=== PATIENT | female | born 1945 | race African-American/Black ===

== ENCOUNTER 2017-10-26 10:19 | Outpatient (CLI) ==
[2016-05-25 21:51] VITALS: BMI 19.3
--- NOTE | 2017-10-26 11:38 | MAMMO ---
EXAM: Digital screening mammogram with 3-D tomosynthesis and CAD HISTORY: Screening mammogram COMPARISON: Mammogram 10/12/2013 FINDINGS: Bilateral CC and MLO views of the breasts were performed digitally and demonstrate heterog eneous breast density. Biopsy clip is noted in the left breast. There is no abnormal nodule or calci fication. There is no significant interval change. IMPRESSION: No suspicious nodule or calcification RECOMMENDATION: Annual screening mammogram BIRADS category II: Benign findings
== END 2017-10-26 10:20 | disposition home or self-care (01) ==
LOC: RAD 10:19
PROVIDERS: ATTEND Emergency Medicine
DX: Z12.31 Encounter for screening mammogram for malignant neoplasm of breast (principal); R91.1 Solitary pulmonary nodule; E78.5 Hyperlipidemia, unspecified; I10 Essential (primary) hypertension
CPT/HCPCS: 36415; 77067; 80053; 80061; 85025

== ENCOUNTER 2018-03-02 14:22 | Emergency (ER) ==
[2018-03-02 14:34] VITALS: BP 179/98; TEMP 98; BMI 21.7
--- NOTE | 2018-03-02 16:05 | ED.PDOC ---
General ED Provider: Dr. LISSY BALL Chief Complaint: Back Pain Stated Complaint: Severe Lt Sided back pain from posterior chest to the lower back. Onset after standing at sink doing dishes. Hx of CHF and heart disease and concern pain could be related. Time Seen by Physician: 13:50 Mode of Arrival: Walk-In Information Source: Patient Exam Limitations: No limitations [facility] Nursing and Triage Documentation Reviewed and Agree: Yes Reviewed sepsis parameters & appropriate labs ordered?: Yes System Inflammatory Response Syndrome: Not Applicable Sepsis Protocol: For patient's 13 years and over: Temp is 96.8 and below OR 101 and greater Pulse >90 BPM Resp >20/minute Acutely Altered Mental Status Are patient's symptoms suggestive of a new infection, such as: -Pneumonia -Skin, Soft Tissue -Endocarditis -UTI -Bone, Joint Infection -Implantable Device -Acute Abdominal Infection -Wound Infection -Meningitis -Blood Stream Catheter Infection -Unknown System Inflammatory Response Syndrome: Not Applicable Musculoskeletal Complaint Exam - Back Pain Complaint/Exam Mechanism of Injury: Reports: No known trauma Symptoms Are: Still present Timing: Constant Episodes Lasting: Hours Initial Severity: Severe Current Severity: Moderate Location: Reports: Diffuse Character: Reports: Aching, Spasmodic Aggravating: Reports: Movements Alleviating: Reports: None Associated Signs and Symptoms: Denies: Swelling, Redness, Bruising, Fever, Weakness, Numbness, Tingling, Abdominal pain, Flank pain, Bladder incontinence, Bowel incontinence, Weight loss, Pain with weight bearing Related History: Denies: Similar episode TAD Risk Factors: Reports: None AAA Risk Factors: Reports: None Cauda Equina Risk Factors: Reports: None Epidural Abcess Risk Factors: Reports: None Related Surgical History: Reports: None Focal Tenderness: Yes Paraspinal Muscle Tenderness: Yes Paraspinal Muscle Spasm: Yes Scoliosis: No Lordosis: No Kyphosis: No SLR Test: Right Negative, Left Negative Hip Motion Testing Pain: Right Negative, Left Negative Focal Weakness: Present: None Focal Sensory Loss: Present: None Gait: Present: Normal Differential Diagnoses: Arthritis, Strain Review of Systems - Review Of Systems Constitutional: Reports: No symptoms Eyes: Reports: No symptoms Ears, Nose, Mouth, Throat: Reports: No symptoms Respiratory: Reports: No symptoms Cardiac: Reports: No symptoms GI: Reports: No symptoms : Reports: No symptoms Musculoskeletal: Reports: Back pain Skin: Reports: No symptoms Neurological: Reports: No symptoms Endocrine: Reports: No symptoms Hematologic/Lymphatic: Reports: No symptoms All Other Systems: Reviewed and Negative Past Medical History - Past Medical History Endocrine: Reports: Dyslipidemia Cardiovascular: Reports: Hypertension, CHF Respiratory: Reports: COPD Hematological: Reports: None Gastrointestinal: Reports: GERD Genitourinary: Reports: None Neuro/Psych: Reports: None Musculoskeletal: Reports: None Cancer: Reports: None Last Menstrual Period: HYSTERECTOMY - Surgical History General Surgical History: Reports: Unknown - Family History Family History: Reports: Unknown - Social History Smoking Status: Current every day smoker, Light tobacco smoker Hx Substance Use: No Alcohol Screening: None - Immunizations Tetanus Shot up to Date: Yes Physical Exam - Physical Exam Appearance: Well-appearing, No pain distress, Well-nourished Ill-appearing: None Pain Distress: Mild Eyes: CANDELARIA, EOMI, Conjunctiva clear ENT: Ears normal, Nose normal, Oropharynx normal Respiratory: Airway patent, Breath sounds clear, Breath sounds equal, Respirations nonlabored Cardiovascular: RRR, Pulses normal, No rub, No murmur GI/: Soft Musculoskeletal: Normal strength (Tenderness LT upper to mid thoracic paraspinous musculatrue /decrease flexion), ROM intact, No edema, No calf tenderness Skin: Warm, Dry, Normal color Neurological: Sensation intact, Motor intact, Reflexes intact, Cranial nerves intact, Alert, Oriented Psychiatric: Affect appropriate, Mood appropriate Re-Evaluation - Re-Evaluation Time of Re-Evaluation: 17:30 Status: Improved Vital Signs Stable: Yes Appearance: NAD Lungs: Clear Skin: Warm and Dry Neuro: Alert and Oriented X3 CV: RRR Additional Comments: Discussed with Dr Carrera/To follow up in next week Critical Care Note - Critical Care Note Total Time (mins): 0 Course - Course Hematology/Chemistry: 03/02/18 16:20 03/02/18 16:20 Orders, Labs, Meds: Lab Review 03/02/18 03/02/18 16:20 16:20 WBC 10.83 H RBC 5.62 H Hgb 15.2 Hct 45.1 MCV 80.2 L MCH 27.0 MCHC 33.7 RDW Coeff of Jeremy 15.7 H Plt Count 228 Immature Gran % (Auto) 0.3 Neut % (Auto) 51.0 Lymph % (Auto) 37.6 [place] % (Auto) 9.5 Eos % (Auto) 1.0 Baso % (Auto) 0.6 Immature Gran # (Auto) 0.0 Neut # (Auto) 5.5 Lymph # (Auto) 4.1 H [place] # (Auto) 1.0 Eos # (Auto) 0.1 Baso # (Auto) 0.1 Sodium 141 Potassium 4.9 Chloride 103 Carbon Dioxide 27 Anion Gap 15.9 BUN 11 Creatinine 0.72 Estimated GFR (MDRD) 97.00 BUN/Creatinine Ratio 15.27 Glucose 92 Calcium 11.2 H Total Bilirubin 0.5 AST 14 L ALT 11 L Alkaline Phosphatase 117 Troponin I 0.0380 Total Protein 8.1 Albumin 4.2 Globulin 3.9 Albumin/Globulin Ratio 1.08 Orders Category Date Time Status EKG-(ED ONLY) Stat CARDIO 03/02/18 16:04 Completed CBC W/ AUTO DIFF Stat LAB 03/02/18 16:20 Completed CMP [COMPREHENSIVE METABOLIC PANEL] Stat LAB 03/02/18 16:20 Completed TROPONIN I Stat LAB 03/02/18 16:20 Completed CHEST, 2 VIEWS PA & LAT Stat RADS 03/02/18 16:03 Completed Vital Signs: Temp Pulse Resp BP Pulse Ox 03/02/18 14:25 98.0 F 85 16 179/98 H 93 L Departure - Departure Time of Disposition: 18:00 Disposition: HOME SELF-CARE Discharge Problem: Strain of thoracic paraspinal muscles excluding T1 and T2 levels Instructions: Muscle Strain (ED), Lower Back Exercises (ED), Core Strengthening Exercises (ED) Condition: Good Pt referred to PMD for follow-up: Yes IPMP verified?: No Prescriptions: Tizanidine HCl [Zanaflex] 2 mg PO Q8HR PRN #14 capsule PRN Reason: muscular spasm and back pain Allergies/Adverse Reactions: Allergies No Known Allergies Allergy (Verified 03/02/18 14:29) Home Medications: Ambulatory Orders [place] B 8 spray INH spray 2-3 x daily 07/29/16 Omeprazole Magnesium [Prilosec Otc] 20 mg PO DAILY 03/02/18 Tizanidine HCl [Zanaflex] 2 mg PO Q8HR PRN #14 capsule 03/02/18 Disposition Discussed With: Patient
--- NOTE | 2018-03-02 16:29 | DI ---
Exam: Two views of the chest. Comparison: CT chest performed 06/23/2016. Reason for exam: Left-sided posterior chest pain. FINDINGS: Parenchymal changes are seen consistent with chronic lung disease. No pneumothorax, pleur al effusion, or focal consolidation. The cardiac silhouette remains prominent in size. No displaced fractures are seen. Evaluation of the thoracic spine is limited by summation artifact. Impression: No acute cardiopulmonary process in the setting of suspected chronic lung disease.
== END 2018-03-02 18:15 | disposition home or self-care (01) ==
LOC: ED 14:22
DX: S29.012A Strain of muscle and tendon of back wall of thorax, initial encounter (principal); X50.1XXA Overexertion from prolonged static or awkward postures, initial encounter; I25.10 Atherosclerotic heart disease of native coronary artery without angina pectoris; I50.9 Heart failure, unspecified; E78.5 Hyperlipidemia, unspecified; I10 Essential (primary) hypertension; J44.9 Chronic obstructive pulmonary disease, unspecified; K21.9 Gastro-esophageal reflux disease without esophagitis; F17.210 Nicotine dependence, cigarettes, uncomplicated
CPT/HCPCS: 36415; 80053; 84484; 85025; 93005; 93010; 99283

== ENCOUNTER 2018-03-12 08:37 | Emergency (ER) ==
[2018-03-12 08:45] VITALS: BP 174/101; TEMP 97.9; BMI 21.9
[2018-03-12] MEDS: ZOFRAN 4 MG/2 ML IM STA (09:02)
[2018-03-12] MEDS: DILAUDID 2 MG/ML SYRINGE IM STA (09:02)
--- NOTE | 2018-03-12 09:44 | CT ---
EXAM: CT of thoracic spine. HISTORY: Back pain COMPARISON: None. TECHNIQUE: Axial scans acquired at 3 mm slice thicknesses. MPR coronal and sagittal sequence comple tammy FINDINGS: Sagittal sequence shows demineralization of the thoracic vertebra.. There is a lytic lesion or area decreased bone density involving the body of T9. Is seen left of midline with expansion or destructi on of the lateral cortex and extension into the anterior left pedicle. There is no fracture of the m argins of the spinal canal. Coronal sequence shows approximately 23 degrees dextroscoliosis. There are degenerate changes of the facet joints and disc space narrowing lower cervical spine There is some narrowing of the C7-T1 disc space .. There are degenerative change facet joints with s ome narrowing the right left neural foramen. T1-T2 level . There is degenerate disc disease with indentation of the dura and minimal to moderate right and left foraminal stenosis T2-T3 to the T11-T12 level show no acute disc protrusion, spinal stenosis or severe foraminal stenosi s. Impression 1. There is a lytic lesion or cystic change involving the body of T9 left of midline with expansion or destruction of the lateral cortex. There is minimal extension into the anterior left pedicle of T 9. Findings concerning for metastatic disease or myeloma less likely a giant cell tumor. There is n o fracture of the margins of the spinal canal or obvious extradural mass. Follow-up bone scan or MRI would be helpful to further assess. 2. There is some narrowing the C 7T1 disc space degenerative change facet joints and some narrowing the right left neural foramen. There is also degenerative change of the lower cervical spine. 3. Approximately 23 degrees dextroscoliosis thoracic spine. Results of CT findings were discussed by phone with attending ER physician, Dr. Segura Faxed report sent
--- NOTE | 2018-03-12 09:46 | ED.PDOC ---
General ED Provider: Dr. LISSY GALLEGOS-ER Chief Complaint: Back Pain Stated Complaint: maurice been having back pain for 3 weeks Time Seen by Physician: 08:45 Mode of Arrival: Walk-In Information Source: Patient Exam Limitations: No limitations [facility] Nursing and Triage Documentation Reviewed and Agree: Yes Reviewed sepsis parameters & appropriate labs ordered?: Yes System Inflammatory Response Syndrome: Not Applicable Sepsis Protocol: For patient's 13 years and over: Temp is 96.8 and below OR 101 and greater Pulse >90 BPM Resp >20/minute Acutely Altered Mental Status Are patient's symptoms suggestive of a new infection, such as: -Pneumonia -Skin, Soft Tissue -Endocarditis -UTI -Bone, Joint Infection -Implantable Device -Acute Abdominal Infection -Wound Infection -Meningitis -Blood Stream Catheter Infection -Unknown Musculoskeletal Complaint Exam - Back Pain Complaint/Exam Mechanism of Injury: Reports: No known trauma Onset/Duration: 3 weeks Symptoms Are: Still present Timing: Constant Initial Severity: Mild Current Severity: Moderate Location: Reports: Discrete Character: Reports: Dull, Aching, Stiffness Aggravating: Reports: Movements, Lifting, Bending, Walking Alleviating: Reports: None Associated Signs and Symptoms: Denies: Swelling, Redness, Bruising, Fever, Weakness, Numbness, Tingling, Abdominal pain, Flank pain, Bladder incontinence, Bowel incontinence, Weight loss, Pain with weight bearing TAD Risk Factors: Reports: None AAA Risk Factors: Reports: None Cauda Equina Risk Factors: Reports: None Epidural Abcess Risk Factors: Reports: None Related Surgical History: Reports: None Paraspinal Muscle Tenderness: Yes Paraspinal Muscle Spasm: Yes SLR Test: Right Negative, Left Negative Hip Motion Testing Pain: Left Negative Focal Weakness: Present: None, RLE Focal Sensory Loss: Present: None Gait: Present: Normal Differential Diagnoses: Compressive Cord Syndrome, Fracture, Herniated Disk Review of Systems - Review Of Systems Constitutional: Reports: No symptoms Eyes: Reports: No symptoms Ears, Nose, Mouth, Throat: Reports: No symptoms Respiratory: Reports: No symptoms Cardiac: Reports: No symptoms GI: Reports: No symptoms : Reports: No symptoms Musculoskeletal: Reports: Back pain, Muscle pain Skin: Reports: No symptoms Neurological: Reports: No symptoms Endocrine: Reports: No symptoms Hematologic/Lymphatic: Reports: No symptoms All Other Systems: Reviewed and Negative Past Medical History - Past Medical History Previously Healthy: No Endocrine: Reports: Dyslipidemia Cardiovascular: Reports: Hypertension, CHF Respiratory: Reports: COPD Hematological: Reports: None Gastrointestinal: Reports: GERD Genitourinary: Reports: None Neuro/Psych: Reports: None Musculoskeletal: Reports: None Cancer: Reports: None Last Menstrual Period: N/A - Surgical History General Surgical History: Reports: Unknown - Family History Family History: Reports: Unknown - Social History Smoking Status: Current every day smoker, Light tobacco smoker Hx Substance Use: No Alcohol Screening: None Physical Exam - Physical Exam Appearance: Well-appearing, No pain distress, Well-nourished Pain Distress: Moderate Eyes: CANDELARIA ENT: Ears normal, Nose normal, Oropharynx normal Neck: Supple Respiratory: Airway patent, Breath sounds clear, Breath sounds equal, Respirations nonlabored Cardiovascular: RRR, Pulses normal, No rub, No murmur GI/: Soft, Nontender, No masses, Bowel sounds normal, No Organomegaly Musculoskeletal: Normal strength Skin: Warm, Dry, Normal color Neurological: Sensation intact, Motor intact, Reflexes intact, Cranial nerves intact, Alert, Oriented Psychiatric: Affect appropriate, Mood appropriate, Anxious Interpretation - Radiology Interpretation Radiology Interpretation By: Radiologist Radiology Results: Positive Exam Interpreted: CT Scan ("T9 lesion") Physician Notification - Case Discussed Physician Notified: dr armas notified--agreed for transfer for NS and oncology Critical Care Note - Critical Care Note Total Time (mins): 0 Course - Course Orders, Labs, Meds: Orders Category Date Time Status Hydromorphone HCl/Pf [Dilaudid 2 mg/ml Syringe] MEDS 03/12/18 08:50 Discontinued 1 mg IM ONCE STA Ondansetron HCl/Pf [Zofran 4 mg/2 ml] MEDS 03/12/18 08:51 Discontinued 4 mg IM ONCE STA CT LUMBAR SPINE W/O CONTRAST Stat RADS 03/12/18 08:[address] THORACIC SPINE W/O CONTRAST Stat RADS 03/12/18 08:49 Taken Medications Discontinued Medications Generic Name Dose Route Start Last Admin Trade Name Freq PRN Reason Stop Dose Admin Hydromorphone HCl 1 mg 03/12/18 08:50 03/12/18 09:02 Dilaudid 2 Mg/Ml Syringe IM 03/12/18 08:51 1 mg ONCE STA Administration Ondansetron HCl 4 mg 03/12/18 08:51 03/12/18 09:02 Zofran 4 Mg/2 Ml IM 03/12/18 08:52 4 mg ONCE STA Administration Vital Signs: Temp Pulse Resp BP Pulse Ox 03/12/18 08:38 97.9 F 71 18 174/101 H 96 Departure - Departure Time of Disposition: 09:47 Disposition: TSF SHORT-TRM HOSP Discharge Problem: Backache Instructions: Back Pain (ED) Condition: Good Pt referred to PMD for follow-up: Yes IPMP verified?: No Allergies/Adverse Reactions: Allergies No Known Allergies Allergy (Verified 03/12/18 08:42) Home Medications: Ambulatory Orders [place] B 8 spray INH spray 2-3 x daily 07/29/16 Omeprazole Magnesium [Prilosec Otc] 20 mg PO DAILY 03/02/18 Tizanidine HCl [Zanaflex] 2 mg PO Q8HR PRN #14 capsule 03/02/18 Transfer Form Completed: Yes Disposition Discussed With: Patient, Family
--- NOTE | 2018-03-12 09:56 | CT ---
Exam. CT lumbosacral spine without contrast History. Back pain Technique Axial scans acquired at 3 mm slice thicknesses. MPR coronal and sagittal sequence completed FINDINGS Sagittal sequence shows disc space narrowing L2-L3 level with vertebral body heights maintained. The re are degenerative change facet joints lower lumbar spine. Coronal sequence shows moderate levoscoliosis. No paravertebral mass. Segmental analysis L1-L2 level: No disc protrusion or foraminal stenosis. There is a subtle 9.4 mm decreased bone densi ty involving the right body of the L1, occult metastasis not excluded L2-L3 level: Diffuse bulging of disc. Degenerative change facet joints with minimal narrowing the c entral spinal canal. No foraminal stenosis. Subtle 0.4 cm area decreased bone density involving left pedicle L3, occult metastatic lesion not excluded L3-L4 level: There is some bulging of disc. No foraminal stenosis. L4-L5 level: Central disc bulge or protrusion with indentation of dura. Degenerative change facet j oints seen with no foraminal stenosis L5-S1 level: No disc protrusion or foraminal stenosis. Impression Impression 1. There is degenerate disc disease at the L2-L3 level with moderate disc space narrowing. There ar e degenerative changes facet joints at this level with minimal central spinal canal stenosis. No for aminal stenosis. 2. There are areas of decreased bone density possible small areas of lytic change involving the righ t body of L1 and the left pedicle of L3 vertebra. Possibility of small metastatic foci suggested. 3. Moderate levoscoliosis lumbar spine. Results faxed to the ER.
== END 2018-03-12 10:09 | disposition short-term general hospital (02) ==
LOC: ED 08:37
DX: M54.9 Dorsalgia, unspecified (principal); F17.210 Nicotine dependence, cigarettes, uncomplicated
CPT/HCPCS: 96372; 99283; 99285

== ENCOUNTER 2018-04-10 14:56 | Outpatient (CLI) ==
--- NOTE | 2018-04-10 17:10 | CT ---
EXAM: Noncontrast CT head. HISTORY: Slurred speech. COMPARISON: 05/25/2016 TECHNIQUE: Noncontrast CT head was performed with axial, coronal and sagittal reconstructions. Findings: There is a stable hypodensity seen within the right caudate head at axial image number 13 unchanged f rom axial image number 80 previously suggestive of a previous lacunar infarct site. There is preservation of the smith-white differential without evidence of definitive large vessel acut e cortical infarct identified. No acute intracranial hemorrhage is identified. No midline shift is i dentified. No definitive intracranial mass lesion is identified within technical limitations of nonco ntrast CT. The basal cisterns are patent. There is mild ventricular enlargement suggesting diffuse b rain parenchymal volume loss. Bilateral white matter hypodensities are present. Limited evaluation of the skull demonstrates no visualized lucent skull acute fractures or destructive osseous lesions stephanie ntified within the visualized portions of the skull. Partially visualized paranasal sinuses and mast oid air cells appear relatively clear in the visualized regions. Impression: 1. No acute intracranial hemorrhage or definitive large vessel acute cortical infarct identified. MR I brain evaluation could be performed to more sensitively assess for acute infarct if there is clinic al concern. 2. Diffuse brain parenchymal volume loss likely age related. 3. Bilateral white matter hypodensities which are not specicific but can be seen with chronic microva scular ischemic disease. 4. Findings suggestive of a previous right caudate head lacunar infarct again seen.
== END 2018-04-10 14:57 | disposition home or self-care (01) ==
LOC: RAD 14:56
PROVIDERS: ATTEND Emergency Medicine
DX: R47.81 Slurred speech (principal)

== ENCOUNTER 2018-04-11 14:12 | Outpatient (CLI) ==
--- NOTE | 2018-04-11 15:18 | US ---
EXAM: Ultrasound bilateral carotid duplex HISTORY: TIA with facial weakness and hypertension COMPARISON: Carotid Doppler 06/23/2016 TECHNIQUE: Sonographic and color Doppler evaluation of the carotids were performed. FINDINGS: The right carotid is patent in appearance with mild atherosclerotic plaque visualized. Arteries are t ortuous. The right ICA peak systolic velocity measures 70 cm/sec which is normal. The ICA / CCA peak systolic velocity ratio is 1.3 and ICA end-diastolic velocity is 20 cm/sec. The left carotid is patent in appearance with mild to moderate atherosclerotic plaque visualized. The left ICA peak systolic velocity measures 70 cm/sec which is normal. The left ICA / CCA peak systolic velocity ratio is 1.5 and ICA end-diastolic velocity is 30 cm/sec. T he arteries are tortuous. Vertebral arteries demonstrate antegrade flow bilaterally. Color Doppler wave spectral analysis is normal. Incidentally noted is a left thyroid nodule with a c alcified. Measuring 2.1 x 1.6 x 1.7 cm. IMPRESSION: 1. Scattered atherosclerotic disease, worse on the left than on the right with no sonographic or Dop pler evidence to suggest hemodynamically significant stenosis. 2. Incidentally noted peripherally calcified left thyroid nodule. Dedicated thyroid ultrasound is r ecommended to further evaluate.
== END 2018-04-11 14:13 | disposition home or self-care (01) ==
LOC: RAD 14:12
PROVIDERS: ATTEND Emergency Medicine
DX: R42 Dizziness and giddiness (principal); G45.9 Transient cerebral ischemic attack, unspecified

== ENCOUNTER 2018-10-16 00:40 | Outpatient (CLI) | END 2018-10-16 00:59 | disposition short-term general hospital (02) | LOC: AMBL 00:40 | PROVIDERS: ATTEND Family Medicine | DX: R06.02 Shortness of breath (principal); R05 Cough; R00.0 Tachycardia, unspecified; I49.3 Ventricular premature depolarization; R53.1 Weakness; J44.9 Chronic obstructive pulmonary disease, unspecified; C90.00 Multiple myeloma not having achieved remission; I10 Essential (primary) hypertension; I50.9 Heart failure, unspecified ==

== ENCOUNTER 2019-05-29 11:41 | Emergency (ER) ==
[2019-05-29 11:49] VITALS: BP 117/68; TEMP 97.8; BMI 16.7
--- NOTE | 2019-05-29 12:01 | ED.PDOC ---
General ED Provider: Dr. 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 Shortly after arrival at home she has experienced dyspnea, which has progressively worsened and states today shortness of air worsened. denies cough or pain. Upon arrival patient very anxious and o2 sat 98 % Time Seen by Physician: 11:55 Mode of Arrival: Walk-In Information Source: Patient Nursing and Triage Documentation Reviewed and Agree: Yes Does patient meet sepsis criteria?: No System Inflammatory Response Syndrome: Not Applicable Sepsis Protocol: For patient's 13 years and over: Temp is 96.8 and below OR 101 and greater Pulse >90 BPM Resp >20/minute Acutely Altered Mental Status Are patient's symptoms suggestive of a new infection, such as: -Pneumonia -Skin, Soft Tissue -Endocarditis -UTI -Bone, Joint Infection -Implantable Device -Acute Abdominal Infection -Wound Infection -Meningitis -Blood Stream Catheter Infection -Unknown Respiratory Complaint Exam - Shortness of Air Complaint/Exam Symptoms Are: Still present Timing: Constant Initial Severity: Moderate Current Severity: Moderate Character: Reports: Dyspnea at rest, Dyspnea on exertion Aggravating: Reports: Movement, Deep breaths Alleviating: Reports: None Associated Signs and Symptoms: Reports: Cough, Dizziness Related History: Denies: Similar episode Pulmonary Embolism Risk Factors: Reports: Malignancy Cardiac Risk Factors: Reports: Prior RI, Smoking, Elevated lipids, Hypertension , CHF Pseudomonas Risk Factors: Reports: None Tuberculosis Risk Factors: Reports: None Home Oxygen Use: No Recent Stress Test: No Recent Echo/LV Function: No Respiratory Distress: Mild Stridor Present: No Tracheal Deviation: No Subcutaneous Emphysema: No Accessory Muscle Use: No Diminished Breath Sounds: Yes (Rt>LT basilar region ) Unable to Speak Full Sentences: No Fatigue: Yes Leg Swelling: No Camron's Sign Present: No Grunting Respirations: No Kussmaul Respirations: No Differential Diagnoses: CHF, COPD Exacerbation, Pneumonia, Pulmonary Embolism Quality Indicators for AMI: EKG in 10min. Quality Indicators For Pneumonia/CAP: Blood Cultures-SCU admit, Antibiotics in 6hr-admit, Empiric Antibiotic Rx, Vital signs, Mental status assessed Review of Systems - Review Of Systems Constitutional: Reports: No symptoms Eyes: Reports: No symptoms Ears, Nose, Mouth, Throat: Reports: No symptoms Respiratory: Reports: Cough, Short of air Cardiac: Reports: No symptoms GI: Reports: No symptoms : Reports: No symptoms Musculoskeletal: Reports: No symptoms Skin: Reports: No symptoms Neurological: Reports: No symptoms Endocrine: Reports: No symptoms Hematologic/Lymphatic: Reports: No symptoms All Other Systems: Reviewed and Negative Past Medical History - Past Medical History Previously Healthy: No Endocrine: Reports: Dyslipidemia Cardiovascular: Reports: Hypertension, CHF Respiratory: Reports: COPD Hematological: Reports: None Gastrointestinal: Reports: GERD Genitourinary: Reports: None Neuro/Psych: Reports: None Musculoskeletal: Reports: None Cancer: Reports: None Last Menstrual Period: n/a - Surgical History General Surgical History: Reports: Unknown - Family History Family History: Reports: Unknown - Social History Smoking Status: Current every day smoker, Light tobacco smoker Hx Substance Use: No Alcohol Screening: None Physical Exam - Physical Exam Appearance: Ill-appearing, Thin Ill-appearing: Moderate Pain Distress: None Eyes: CANDELARIA, EOMI, Conjunctiva clear ENT: Ears normal, Nose normal, Oropharynx normal, Rhinorrhea Neck: Supple Respiratory: Airway patent, Breath sounds clear, Breath sounds equal, Respirations nonlabored Cardiovascular: RRR, Pulses normal, No rub, No murmur GI/: Soft, Nontender, No masses, Bowel sounds normal, No Organomegaly Musculoskeletal: Normal strength Skin: Warm, Dry, Normal color Neurological: Sensation intact, Motor intact, Reflexes intact, Cranial nerves intact, Alert, Oriented Psychiatric: Affect appropriate Interpretation - Radiology Interpretation Exam Interpreted: CT Scan Xray Comments: PE PROTOCOL- + Thrombus Lt Main Pulm Artery and Lt atrium. Cardiomegaly/ Re-Evaluation - Re-Evaluation Time of Re-Evaluation: 16:20 Status: Improved Vital Signs Stable: Yes Appearance: NAD Lungs: Clear Skin: Warm and Dry Neuro: Alert and Oriented X3 CV: RRR Critical Care Note - Critical Care Note Total Time (mins): 60 Course - Course Hematology/Chemistry: 05/29/19 13:05 05/29/19 13:05 Orders, Labs, Meds: Lab Review 05/29/19 05/29/19 05/29/19 12:22 13:05 13:05 WBC 6.30 RBC 4.62 Hgb 12.9 Hct 38.3 MCV 82.9 MCH 27.9 MCHC 33.7 RDW Coeff of Jeremy 15.7 H Plt Count 346 Immature Gran % (Auto) 0.2 Neut % (Auto) 52.4 Lymph % (Auto) 35.9 Dickson % (Auto) 9.7 Eos % (Auto) 0.2 Baso % (Auto) 1.6 Immature Gran # (Auto) 0.0 Neut # (Auto) 3.3 Lymph # (Auto) 2.3 Dickson # (Auto) 0.6 Eos # (Auto) 0.0 Baso # (Auto) 0.1 Poikilocytosis 3+ Anisocytosis 1+ Microcytosis 3+ Macrocytosis 1+ Target Cells 1+ Tear Drop Cells 1+ Ovalocytes 2+ [place] Cells 1+ Acanthocytes (Spur) 1+ Schistocytes 1+ RBC Morph Comment D-Dimer (Manual) Puncture Site Rbrach O2 Saturation 99.0 ABG pH 7.462 H ABG pCO2 30.1 L ABG pO2 113.0 H ABG HCO3 21.5 L ABG Total CO2 22 ABG Base Excess -2 FiO2 % 21.0 Sodium 136.8 Potassium 3.60 Chloride 107.2 H Carbon Dioxide 22.2 Anion Gap 11.00 BUN 5.0 L Creatinine 0.48 L Estimated GFR (MDRD) 154.00 BUN/Creatinine Ratio 10.41 Glucose 93.5 Lactic Acid Calcium 9.33 Total Bilirubin 0.41 AST 21.2 ALT 18.9 Alkaline Phosphatase 83.5 Troponin I < 0.012 NT-Pro-B Natriuret Pep 3840.000 H Total Protein 6.32 Albumin 3.60 Globulin 2.72 Albumin/Globulin Ratio 1.32 Procalcitonin 05/29/19 05/29/19 05/29/19 13:05 13:05 13:05 WBC RBC Hgb Hct MCV MCH MCHC RDW Coeff of Jeremy Plt Count Immature Gran % (Auto) Neut % (Auto) Lymph % (Auto) Dickson % (Auto) Eos % (Auto) Baso % (Auto) Immature Gran # (Auto) Neut # (Auto) Lymph # (Auto) Dickson # (Auto) Eos # (Auto) Baso # (Auto) Poikilocytosis Anisocytosis Microcytosis Macrocytosis Target Cells Tear Drop Cells Ovalocytes [place] Cells Acanthocytes (Spur) Schistocytes RBC Morph Comment D-Dimer (Manual) 2217.45 Puncture Site O2 Saturation ABG pH ABG pCO2 ABG pO2 ABG HCO3 ABG Total CO2 ABG Base Excess FiO2 % Sodium Potassium Chloride Carbon Dioxide Anion Gap BUN Creatinine Estimated GFR (MDRD) BUN/Creatinine Ratio Glucose Lactic Acid 0.92 Calcium Total Bilirubin AST ALT Alkaline Phosphatase Troponin I NT-Pro-B Natriuret Pep Total Protein Albumin Globulin Albumin/Globulin Ratio Procalcitonin < 0.05 Orders Category Date Time Status ABG DRAW REQUEST Stat CARDIO 05/29/19 12:23 Completed EKG-(ED ONLY) Stat CARDIO 05/29/19 12:25 Completed NPO REMINDER: IMAGING ONCE CARE 05/29/19 14:04 Completed ABG Stat LAB 05/29/19 12:22 Completed BLOOD CULTURE (ED ONLY) Stat LAB 05/29/19 13:05 Received CBC W/ AUTO DIFF Stat LAB 05/29/19 13:05 Completed COMPREHENSIVE METABOLIC PANEL Stat LAB 05/29/19 13:05 Completed D-DIMER Stat LAB 05/29/19 13:05 Completed LACTIC ACID Stat LAB 05/29/19 13:05 Completed NT-PROBNP Stat LAB 05/29/19 13:05 Completed PROCALCITONIN Stat LAB 05/29/19 13:05 Completed RBC MORPHOLOGY Stat LAB 05/29/19 13:05 Completed TROPONIN I Stat LAB 05/29/19 13:05 Completed Ceftriaxone 1 gm Vial [Rocephin 1 gm Vial] MEDS 05/29/19 14:09 Discontinued 1 gm .ROUTE .STK-MED ONE Ceftriaxone 1 gm Vial [Rocephin 1 gm Vial] 1 gm MEDS 05/29/19 14:05 Discontinued 0.9 % Sodium Chloride [Sodium Chloride] 50 ml IV ONCE Enoxaparin Sodium [Lovenox] MEDS 05/29/19 15:10 Discontinued 60 mg SUBCUT ONCE STA CHEST, 1V AP ONLY Stat RADS 05/29/19 11:[address] CHEST PE PROTOCOL Stat RADS 05/29/19 14:03 Completed Medications Discontinued Medications Generic Name Dose Route Start Last Admin Trade Name Freq PRN Reason Stop Dose Admin Enoxaparin Sodium 60 mg 05/29/19 15:10 05/29/19 15:18 Lovenox SUBCUT 05/29/19 15:11 60 mg ONCE STA Administration Ceftriaxone Sodium 1 gm/ 50 mls @ 75 mls/hr 05/29/19 14:05 05/29/19 14:26 Sodium Chloride IV 05/29/19 14:44 75 mls/hr ONCE STA Administration Vital Signs: Temp Pulse Resp BP Pulse Ox 05/29/19 11:45 97.8 F 103 H 28 H 117/68 100 Departure - Departure Time of Disposition: 15:30 Disposition: TSF SHORT-TRM HOSP Discharge Problem: Pulmonary embolus, left Condition: Stable Pt referred to PMD for follow-up: Yes IPMP verified?: No Additional Instructions: Recommend transfer to [facility] for cardiology consult. Dr Rosa Maria Segura concurs accepts Allergies/Adverse Reactions: Allergies No Known Allergies Allergy (Verified 05/29/19 12:06) Home Medications: Ambulatory Orders Acetaminophen [Pain Relief] 650 mg PO Q6H PRN 05/29/19 Acyclovir [Zovirax] 200 mg PO BID 05/29/19 Albuterol Sulfate [Albuterol Sulfate Hfa] 2 puff IH Q4H PRN 05/29/19 Aspirin [Aspirin Chewable] 81 mg PO DAILYWM 05/29/19 Bortezomib [Velcade] 3.5 mg IJ MO 05/29/19 Calcium Carbonate/Vitamin D3 [Os-Jr 500+D3 Caplet] 1 each PO DAILY 05/29/19 Dexamethasone 2 mg PO BID 05/29/19 Dronabinol [Marinol] 5 mg PO BID 05/29/19 Lenalidomide [Revlimid] 25 mg PO DAILY 05/29/19 Metoclopramide HCl [Reglan] 10 mg PO QID 05/29/19 Metoprolol Succinate 50 mg PO DAILY 05/29/19 Mirtazapine 15 mg PO BEDTIME 05/29/19 Ondansetron HCl [Zofran Tab] 8 mg PO Q8H PRN 05/29/19 Vitamin B Complex [B Complex] 1 each PO DAILY 05/29/19 Additional Comments Additional Comments: COntacted WBapt for consult by cardiology as req by Dr Segura .Discussed with Dr Crane vocational rehabilitation specialist and discussed case including ? need for intervention emergently, explaining findings on CT chest OR protocol.Explained findings of 1.8 cm thrombus in proximal Lt Main Pulmonary Artery and LT Atrium. Reviewed CT scan findings. Was advised to anticoagulant pt and [facility] , obtain Echocardiogram etc/. Called Dr Segura and discused Dr Crane' decision. Agreed to accept pt for immediated transfer to [facility] for admission. Reviewed with patient and her
--- NOTE | 2019-05-29 12:18 | DI ---
EXAM: Single view of the chest. History: Dyspnea, recent lung biopsy Comparison: Chest radiograph 03/02/2018 Findings: Heart is enlarged. Cannot exclude pericardial effusion. Elevated left hemidiaphragm. Le ft lower lobe atelectasis or pneumonia and probable small left pleural effusion. No pneumothorax. N o acute osseous abnormalities. Atherosclerotic vascular calcifications. Impression: 1. No pneumothorax. 2. Cardiomegaly and cannot exclude pericardial effusion. 3. Left lower lobe atelectasis or pneumonia and probable small left pleural effusion.
[2019-05-29] MEDS ORDERED: ROCEPHIN 1 GM VIAL 1 GM in SODIUM CHLORIDE 50 ML IV STA (14:05)
[2019-05-29] MEDS ORDERED: ROCEPHIN 1 GM VIAL ONE (14:09)
--- NOTE | 2019-05-29 15:00 | CT ---
EXAM: CTA of the chest. History: Short of breath Technique: Multiplanar CT images through the thorax were obtained following administration of IV con trast. MIP images and 3-D reconstructions were also acquired. Findings: Heart is enlarged. Small to moderate partially loculated left pleural effusion with a few foci of air. No pleural separation. Mild interstitial edema. No consolidated pneumonia. No thora cic aortic aneurysm. No pathologically enlarged thoracic lymph nodes. Rim calcified nodule within t he left thyroid. 1.8 cm thrombus within the left main pulmonary artery. 1.8 cm thrombus within the left atrium. Within the visualized upper abdomen, no grossly acute findings. No acute osseous abnormalities. Kyp hoplasty and chronic compression deformity at T9. Impression: 1. Pulmonary embolism involving the left main pulmonary. 2. 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 3. Cardiomegaly with interstitial edema. 4. Partially loculated small to moderate left pleural effusion with associated small amount of pleur al air. Critical results communicated to Dr. Durant at 2:46 p.m. 05/29/2019
[2019-05-29] MEDS ORDERED: LOVENOX SUBCUT STA (15:10)
== END 2019-05-29 15:47 | disposition short-term general hospital (02) ==
LOC: ED 11:41
DX: I26.99 Other pulmonary embolism without acute cor pulmonale (principal); C34.92 Malignant neoplasm of unspecified part of left bronchus or lung; R05 Cough; R42 Dizziness and giddiness; Z98.890 Other specified postprocedural states; E78.5 Hyperlipidemia, unspecified; I10 Essential (primary) hypertension; Z79.899 Other long term (current) drug therapy; I50.9 Heart failure, unspecified; J44.9 Chronic obstructive pulmonary disease, unspecified; I25.2 Old myocardial infarction; F17.210 Nicotine dependence, cigarettes, uncomplicated
CPT/HCPCS: 36415; 80053; 82803; 83605; 83880; 84145; 84484; 85008; 85025; 85379; 87040; 93005; 93010; 96365; 96372; 99285

== ENCOUNTER 2019-05-29 15:53 | Outpatient (CLI) ==
[2019-05-29 11:49] VITALS: BMI 16.7
== END 2019-05-29 16:15 | disposition short-term general hospital (02) ==
LOC: AMBL 15:53
PROVIDERS: ATTEND Emergency Medicine
DX: R06.02 Shortness of breath (principal); I26.99 Other pulmonary embolism without acute cor pulmonale; Z98.890 Other specified postprocedural states

== ENCOUNTER 2019-06-05 03:59 | Outpatient (CLI) | END 2019-06-05 04:15 | disposition short-term general hospital (02) | LOC: AMBL 03:59 | PROVIDERS: ATTEND Family Medicine | DX: R06.02 Shortness of breath (principal); C34.12 Malignant neoplasm of upper lobe, left bronchus or lung; I26.99 Other pulmonary embolism without acute cor pulmonale; R00.0 Tachycardia, unspecified ==